=== PATIENT | female | born 1970 | race American Indian/Alaskan Native ===

== ENCOUNTER 2016-06-03 09:15 | Outpatient (CLI) | payer OTHER ==
--- NOTE | 2016-06-03 15:43 | Mammography Report ---
BILATERAL DIGITAL SCREENING MAMMOGRAM with CAD: 06/03/16 09:15:00 CLINICAL: Routine screening. COMPARISON:06/03/15 and annual mammograms going back to 2010. FINDINGS: The breasts are heterogeneously dense, which may obscure small masses. Left architectural distortion on the CC view and asymmetries on the MLO view require additional imaging. There is suggestion of an enlarged left axillary lymph node. No suspicious calcifications.The right breast is negative. IMPRESSION: Left architectural distortion and asymmetries requiring further workup. BI-RADS CATEGORY: 0 -- Additional Imaging Evaluation Required RECOMMENDATION: Recall for left spot magnification MLO and CC views and left global breast ultrasound and left axillary ultrasound. ACR BI-RADS MAMMOGRAPHIC CODES: 0 = Needs additional imaging evaluation; 1 = Negative; 2 = Benign; 3 = Probably benign; 4 = Suspicious; 5 = Malignant; 6 = Known biopsy-proven malignancy COMMENT: 1. Dense breast tissue, i.e., adenosis, fibrocystic changes, etc., may obscure an underlying neoplasm. 2. Approximately 10% of cancers are not detected with mammography. 3. A negative mammography report should not delay biopsy if a clinically suspicious mass is present. COMMENT: Patient follow-up letters are generated via our [employer] application.
== END 2016-06-03 09:16 | disposition home or self-care (01) ==
LOC: SPVWC 09:15
PROVIDERS: ATTEND Obstetrics & Gynecology
DX: Z12.31 Encounter for screening mammogram for malignant neoplasm of breast (principal)
CPT/HCPCS: 77067; G0202

== ENCOUNTER 2016-06-30 09:21 | Outpatient (CLI) | payer OTHER ==
--- NOTE | 2016-06-30 10:57 | Mammography Report ---
LEFT DIGITAL DIAGNOSTIC MAMMOGRAM and LEFT BREAST ULTRASOUND: 06/30/16 09:21:00 CLINICAL: Recall to evaluate asymmetries and architectural distortion. COMPARISON:06/03/16 screening FINDINGS: ML and spot compression MLO and cc views were performed. Satisfactory effacement of previously identified architectural distortion and retroareolar asymmetry. An irregular mass is identified in the upper breast far posterior on both MLO and CC spot views. Ultrasound of the right breast (including all four quadrants, the retroareolar area and axilla) was performed. A solid irregular hypoechoic mass at 11 o'clock 11 cm from the nipple correlates with the mammographic mass and measures approximately 1.7 x 1.3 x 1.2 cm. It is adjacent to the pectoral muscle with a 3 mm margin. A cystic cluster at 10 o'clock 4 cm from the nipple measures 1.2 x 0.5 x 0.8 cm and a complex cyst at 12 o'clock 6 cm from the nipple measures 1.2 x 0.6 x 0.7 cm. Ultrasound of the axilla demonstrates no suspicious lymph nodes. IMPRESSION: A highly suspicious left breast mass at 10 o'clock 11 cm from the nipple.Benign cysts at 12 o'clock and 10 o'clock. No suspicious lymph nodes. BI-RADS CATEGORY: 5--Highly Suspicious for Cancer RECOMMENDATION: Ultrasound guided needle core biopsy of the left breast. I discussed the findings and the recommendation for needle core biopsy with the patient at the time of the examination. ACR BI-RADS MAMMOGRAPHIC CODES: 0 = Needs additional imaging evaluation; 1 = Negative; 2 = Benign; 3 = Probably benign; 4 = Suspicious; 5 = Malignant; 6 = Known biopsy-proven malignancy COMMENT: 1. Dense breast tissue, i.e., adenosis, fibrocystic changes, etc., may obscure an underlying neoplasm. 2. Approximately 10% of cancers are not detected with mammography. 3. A negative mammography report should not delay biopsy if a clinically suspicious mass is present. COMMENT: Patient follow-up letters are generated via our [email or web address] application.
== END 2016-06-30 09:22 | disposition home or self-care (01) ==
LOC: SPVWC 09:21
PROVIDERS: ATTEND Obstetrics & Gynecology
DX: N60.02 Solitary cyst of left breast (principal); N60.01 Solitary cyst of right breast; N63 Unspecified lump in breast
CPT/HCPCS: 76641; G0206

== ENCOUNTER 2016-07-07 09:09 | Outpatient (CLI) | payer OTHER ==
--- NOTE | 2016-07-07 10:46 | Mammography Report ---
LEFT DIGITAL DIAGNOSTIC MAMMOGRAM: 07/07/16 09:09:00 CLINICAL: For clip placement immediately status post ultrasound biopsy. COMPARISON:06/30/16 FINDINGS: A biopsy clip is now identified at 11 o'clock within the mass near the chest wall. IMPRESSION: Concordant clip placement status post ultrasound biopsy. BI-RADS CATEGORY: 4--Suspicious Pathology pending.
--- NOTE | 2016-07-07 12:09 | Ultrasound Report ---
ULTRASOUND GUIDED NEEDLE CORE BIOPSY LEFT BREAST WITH CLIP PLACEMENT: 07/07/16 CLINICAL: Mass at 11 o'clock 11 cm from the nipple. COMPARISON :06/30/16 FINDINGS: The procedure was explained to the patient and informed consent was obtained. Ultrasound demonstrated the previously described solid irregular hypoechoic mass at 11 o'clock near the chest wall.. I marked the breast with a felt tip marker and a time out was called. The skin was prepped with Betadine and anesthetized with 1% lidocaine. Needle core biopsy was performed through a tiny dermatotomy using ultrasound guidance, 2% lidocaine with epinephrine for deep anesthesia and a 14-gauge Achieve biopsy device. Imaging demonstrated satisfactory sampling. 4 cores were obtained and placed in formalin. A clip was deployed within the mass. The patient tolerated the procedure well and there were no apparent complications. Hemostasis was achieved with gentle pressure and a sterile dressing was applied. A two view mammogram demonstrated in concordant placement of the clip. She left the department in good condition and was given instructions for wound care and followup. IMPRESSION: Uncomplicated ultrasound guided needle core biopsy with clip placement left breast.
== END 2016-07-07 09:10 | disposition home or self-care (01) ==
LOC: SPVWC 09:09
PROVIDERS: ATTEND Obstetrics & Gynecology
DX: N63 Unspecified lump in breast (principal)
CPT/HCPCS: 19083; 88305; 88361; A4648; G0206